=== PATIENT | female | born 1955 ===

== ENCOUNTER 2016-11-17 08:33 | Emergency (ER) | payer MEDICARE, MEDICAID ==
[2016-11-17 08:33] VITALS: BMI 24.0
[2016-11-17 08:41] VITALS: TEMP 97.6
--- NOTE | 2016-11-17 08:50 | C.PDOC ---
History Of Present Illness 61 y/o female presents to the ED complaining persistent right leg pain x 1 week and acute exacerbation of chronic back pain x 1 week. Patient states she accidentally tripped and landed on both knees, now with new onset anterior right thigh pain. She reports, "making my back pain act up." Patient denies any relief with Neurontin or Tylenol. Note that the patient has an extensive psych and substance abuse history. Denies weakness, numbness, or other complaints. CO PERSIST R LEG PAIN X 1 WEEK, ACUTE EXAC CHRONIC BACK PAIN X 1 WEEK. PS ACCID TRIPPED, LANDED ON B/L KNEES NOW W NEW ONSET ANT R THIGH PAIN. "MAKING MY BACK PAIN ACT UP". NO RELIEF W NEURONTIN, TYLENOL. extensive psych and substance abuse history EXAM MILD DIST NONTOXIC BACK AROM +SPASM R LOWER BACK NEURO INTACT EXT AROM WO DIFF; NONTEND; ATRAUM SKIN INTACT GAIT WNL MDM PT ADVISED OF CHRONIC PAIN DEPT POLICY. PT REQUESTING XRAY "TO SEE IF A LIGAMENT TORE", ADVISED WOULD NEED OUTPT MRI FOR EVAL OF THAT CONCERN. - HPI Time Seen by Provider: 11/17/16 08:45 Chief Complaint (Nursing): Lower Extremity Problem/Injury History Per: Patient History/Exam Limitations: no limitations Onset/Duration Of Symptoms: Days (7), Sudden Onset, Persistent Recent travel outside of the [place]: No Past Medical History Reviewed: Historical Data, Nursing Documentation, Vital Signs Vital Signs: Last Vital Signs Temp 97.6 F 11/17/16 10:22 Pulse 60 11/17/16 10:22 Resp 18 11/17/16 10:22 BP 107/69 11/17/16 10:22 Pulse Ox 99 11/17/16 10:22 - Medical History PMH: Anxiety, Atrial Fibrillation, Back Problems, Bipolar Disorder, Dementia, Depression, Diabetes, Diverticulitis, Gastrointestinal Ulcer, HTN, Malignancy, Obstructive Bowel, Pneumonia, Pulmonary Embolism, Seizures, Chronic Pain (on Methadone) Surgical History: No Surg Hx - [facility] Procedures INCISIONAL HERNIA REPAIR (06/13/13) INDIVID PSYCHOTHERAP NEC (12/29/14) INJECT/INFUSE NEC (01/28/15) INSERT GASTRIC TUBE NEC (06/07/13) OTHER GROUP THERAPY (12/29/14) OTHER SKIN & SUBQ I D (11/11/13) PSYCHIAT DRUG THERAP NEC (03/07/15) VACCINATION NEC (02/22/15) Family History: States: Unknown Family Hx - Social History Hx Tobacco Use: No Hx Alcohol Use: No Hx Substance Use: No - Immunization History Hx Tetanus Toxoid Vaccination: No Hx Influenza Vaccination: Yes Hx Pneumococcal Vaccination: No Review Of Systems Except As Marked, All Systems Reviewed And Found Negative. Musculoskeletal: Positive for: Back Pain, Leg Pain (right) Neurological: Negative for: Weakness, Numbness Physical Exam - Physical Exam Appears: Non-toxic, Other (in mild distress) Skin: Normal Color, Warm, Dry Head: Atraumatic, Normacephalic Eye(s): bilateral: Normal Inspection, PERRL, EOMI Neck: Normal ROM Chest: Symmetrical Cardiovascular: Rhythm Regular Respiratory: Normal Breath Sounds, No Rales, No Rhonchi, No Wheezing Gastrointestinal/Abdominal: Normal Exam, Soft, No Tenderness Back: No Vertebral Tenderness, Other (AROM +SPASM R LOWER BACK) Extremity: Normal ROM, No Tenderness Extremity: Bilateral: Atraumatic Pulses: Left Dorsalis Pedis: Normal, Right Dorsalis Pedis: Normal Neurological/Psych: Oriented x3, Normal Speech, Normal Cognition, Normal Motor, Normal Sensation, Normal Reflexes Gait: Other (within normal limits) ED Course And Treatment O2 Sat by Pulse Oximetry: 96 (ra) Pulse Ox Interpretation: Normal - Other Rad X-Ray, Right Hip X-Ray: Interpreted by Me Interpretation: negative X-Ray, Right Femur X-Ray: Interpreted by Me Interpretation: negative Progress - Re-Evaluation Re-evaluation Note: 11/17/16 08:50 [facility] 09/13/2016 OXYCODONE-ACETAMINOPHEN 10-325 90.0 30 08/20/2016 OXYCODONE-ACETAMINOPHEN 10-325 90.0 30 - Data Reviewed Data Reviewed: Old records - Continuity of Care Discussed patient case with:: Patient Medical Decision Making Medical Decision Making: Patient advised of chronic pain dept policy. Patient requesting x-ray "to see if a ligament tore." Advised would need outpatient MRI for evaluation of that concern. Plan: * Valium PO, Lidoderm * X-Ray, Right Hip * X-Ray, Right Femur On reassessment, patient reports improvement of back and leg pain. Patient is resting comfortably, no fever, no bony tenderness, no numbness, no weakness, no abdominal pain. Patient is ambulatory in the Emergency Department with no discomfort. Patient was instructed to follow up with physician/clinic in 1-2 days for further evaluation or return to ED if symptoms persist or worsen. Disposition Counseled Patient/Family Regarding: Studies Performed, Diagnosis, Need For Followup - Disposition Referrals: Sunny Triplett MD [Staff Provider] - Disposition: HOME/ ROUTINE Disposition Time: 10:11 Condition: GOOD Prescriptions: Cyclobenzaprine [Flexeril] 10 mg PO TID #15 tab Lidocaine 5% [Lidoderm] 1 ea TD PRN PRN #10 patch PRN Reason: Pain, Moderate (4-7) Instructions: Muscle Strain (ED), Chronic Back Pain (ED) - Clinical Impression Clinical Impression: Muscle strain of thigh, Acute exacerbation of chronic low back pain - Scribe Statement The provider has reviewed the documentation as recorded by the Scribe (Mary Avila) Provider Attestation: All medical record entries made by the Scribe were at my direction and personally dictated by me. I have reviewed the chart and agree that the record accurately reflects my personal performance of the history, physical exam, medical decision making, and the department course for this patient. I have also personally directed, reviewed, and agree with the discharge instructions and disposition.
[2016-11-17] MEDS ORDERED: Lidocaine 5% Patch TD STA (09:32)
[2016-11-17] MEDS ORDERED: Lidocaine 5% Patch TD ONE (09:42)
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
[2016-11-17 10:25] VITALS: BP 107/69; PULSE 60; RESP 18
[2016-11-17 11:54] VITALS: O2SAT 96
== END 2016-11-17 10:25 | disposition home or self-care (01) ==
LOC: C.ER 08:33
DX: S76.911A Strain of unspecified muscles, fascia and tendons at thigh level, right thigh, initial encounter (principal); W01.0XXA Fall on same level from slipping, tripping and stumbling without subsequent striking against object, initial encounter; Y93.9 Activity, unspecified; Y92.9 Unspecified place or not applicable; G89.29 Other chronic pain; M54.5 Low back pain

== ENCOUNTER 2016-12-01 11:03 | Emergency (ER) | payer MEDICARE, MEDICAID ==
[2016-12-01 11:03] VITALS: BMI 24.0
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
[2016-12-01] MEDS ORDERED: Sodium Chloride 0.9% 500 ML IV STA (12:09)
[2016-12-01 12:32] LABS: BASO # 0.1 K/uL (0.0-0.2); BASO % 1.2 % (0.0-2.0); EOS % 0.5 % (0.0-4.0); HEMATOCRIT 37.2 % (34.0-47.0); LYMPH # 4.2 K/uL (1.0-4.3); LYMPH % 48.9 % (20.0-40.0); MEAN CELL VOLUME 74.2 fL (81.0-99.0); MEAN CORPUSCULAR HEMOGLOBIN 23.7 pg (27.0-31.0); MEAN PLATELET VOLUME 9.1 fL (7.2-11.7); MONO # 0.5 K/uL (0.0-0.8); MONO % 5.8 % (0.0-10.0); NRBC % 0.3 % (0.0-2.0); RED CELL DISTRIBUTION WIDTH 15.6 % (11.5-14.5); WHITE BLOOD COUNT 8.7 K/uL (4.8-10.8)
[2016-12-01 12:44] LABS: CHLORIDE 99 mmol/L (98-107); SODIUM 139 mmol/L (132-148)
[2016-12-01 12:45] LABS: POTASSIUM 4.2 mmol/L (3.6-5.2)
[2016-12-01 12:47] LABS: ALB/GLOB RATIO 1.2 (1.0-2.1); ALKALINE PHOSPHATASE 77 U/L (38-126); ALT/SGPT 15 U/L (9-52); AST/SGOT 25 U/L (14-36); BILIRUBIN,TOTAL 0.6 mg/dL (0.2-1.3); BLOOD UREA NITROGEN 12 mg/dL (7-17); CARBON DIOXIDE 31 mmol/L (22-30); GFR AFRICAN-AMERICAN > 60; GLUCOSE,RANDOM 77 mg/dL (65-105); TOTAL PROTEIN 7.7 g/dL (6.3-8.3)
[2016-12-01 12:48] LABS: CALCIUM 9.3 mg/dl (8.6-10.4)
[2016-12-01 13:00] LABS: PARTIAL THROMBOPLASTIN TIME 27 SECONDS (21-34)
[2016-12-01 13:01] LABS: RBC URINE 3 /hpf (0-3); URINE BILIRUBIN NEGATIVE (NEGATIVE); URINE BLOOD 1+ (NEGATIVE); URINE COLOR Straw (YELLOW); URINE GLUCOSE (UA) NORMAL (Normal); URINE KETONE NEGATIVE (NEGATIVE); URINE LEUKOCYTE ESTERASE NEG Leu/uL (Negative); URINE PROTEIN NEGATIVE (NEGATIVE); URINE UROBILINOGEN NORMAL mg/dL (0.2-1.0)
--- NOTE | 2016-12-01 13:11 | RAD ---
HISTORY: left chest pain COMPARISON: Chest x-ray performed 09/26/16 TECHNIQUE: Chest, one view. FINDINGS: Examination limited by habitus. LUNGS: Lower lobe infiltrate. Please note that chest x-ray has limited sensitivity for the detection of pulmonary masses. PLEURA: No significant pleural effusion identified. No definite pneumothorax . CARDIOVASCULAR: The cardiomediastinal silhouette appears within normal limits of size. OSSEOUS STRUCTURES: No acute osseous abnormality identified. VISUALIZED UPPER ABDOMEN: Unremarkable. OTHER FINDINGS: None. IMPRESSION: Left lower lobe infiltrate.
[2016-12-01] MEDS ORDERED: Sodium Chloride 0.9% 1,000 ML ONE (13:36)
[2016-12-01] MEDS ORDERED: Morphine 4 MG/ML VIAL ONE (13:36)
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
[2016-12-01 17:15] VITALS: BP 90/55; PULSE 60; RESP 12; TEMP 98.1; O2SAT 97
[2016-12-01] MEDS ORDERED: Lidocaine 5% Patch TD PRN (17:56)
[2016-12-01] MEDS ORDERED: Albuterol-Ipratrop 3 mg / 0.5 (3 ml) UD INH PRN (17:56)
[2016-12-01] MEDS ORDERED: TRAZODONE HCL 150 MG PO SCH (22:00)
[2016-12-02] MEDS ORDERED: M PROGEST ACET PO SCH (10:00)
[2016-12-02] MEDS ORDERED: METOPROLOL SUCCINATE 50 MG PO SCH (10:00)
[2016-12-02] MEDS ORDERED: ESTROGEN CON PO SCH (10:00)
[2016-12-02] MEDS ORDERED: Home Med 1 UNIT (Esomeprazole Magnesium [Nexium] 40 MG) PO SCH (10:00)
[2016-12-02] MEDS ORDERED: Venlafaxine 150 mg ER Cap PO SCH (10:00)
[2016-12-02] MEDS ORDERED: Levothyroxine 75 MCG TAB PO SCH (10:00)
--- NOTE | 2016-12-03 12:00 | CARD ---
APPROVED REPORT EKG Measurement Heart [id number] [id number] <Conclusion> Normal sinus rhythm Normal ECG
== END 2016-12-01 18:25 | disposition left against medical advice (07) ==
LOC: C.ER 11:03 → UNDOADMOB 13:57 → C.9E 13:57 → C.6T 17:49 → C.9E 17:49 → C.ER 18:25 → C.9E 18:32 → C.6T 18:32 → C.9E 18:37
DX: R07.89 Other chest pain (principal); R20.0 Anesthesia of skin
CPT/HCPCS: 70450; 71010; 80053; 81001; 82550; 82553; 84484; 85025; 85378; 85610; 85730; 96374; 99285; J2270; J7040

== ENCOUNTER 2016-12-19 11:06 | Emergency (ER) | payer MEDICARE, MEDICAID ==
[2016-12-19 11:07] VITALS: BMI 24.0
[2016-12-19 11:13] VITALS: RESP 18; O2SAT 97
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
[2016-12-19] MEDS ORDERED: Naproxen 550 mg Tab PO STA (13:42)
[2016-12-19] MEDS ORDERED: Naproxen 550 mg Tab PO ONE (13:45)
[2016-12-19 14:34] VITALS: BP 128/87; PULSE 55; TEMP 97.5
--- NOTE | 2016-12-22 11:04 | CARD ---
APPROVED REPORT EKG Measurement Heart [id number] ND 160P57 [id number] <Conclusion> Normal sinus rhythm Normal ECG
== END 2016-12-19 13:45 | disposition home or self-care (01) ==
LOC: C.ER 11:06
DX: S06.0X9A Concussion with loss of consciousness of unspecified duration, initial encounter (principal); S20.212A Contusion of left front wall of thorax, initial encounter; Y04.8XXA Assault by other bodily force, initial encounter; Y92.009 Unspecified place in unspecified non-institutional (private) residence as the place of occurrence of the external cause

== ENCOUNTER 2016-12-31 06:45 | Emergency (ER) | payer MEDICARE, MEDICAID ==
[2016-12-31 06:46] VITALS: BMI 24.0
[2016-12-31 07:00] VITALS: BP 126/88; PULSE 77; RESP 20; TEMP 98.1; O2SAT 99
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
--- NOTE | 2016-12-31 09:41 | RAD ---
HISTORY: Shortness of breath COMPARISON: 12/19/2016 TECHNIQUE: Chest PA and lateral FINDINGS: LUNGS: Biapical pleural thickening with upper lobe granulomatous changes. Diffuse increased interstitial lung markings which may represent chronic changes; however, acute on chronic interstitial edema and or infiltrate can't be excluded. Mild patchy bibasilar airspace opacities. Bibasilar breast and nipple shadows. PLEURA: No significant pleural effusion identified. No pneumothorax apparent. CARDIOVASCULAR: Normal. OSSEOUS STRUCTURES: No significant abnormalities. VISUALIZED UPPER ABDOMEN: Surgical clips in the upper abdomen. OTHER FINDINGS: None. IMPRESSION: Biapical pleural thickening with upper lobe granulomatous changes. Diffuse increased interstitial lung markings which may represent chronic changes; however, acute on chronic interstitial edema and or infiltrate can't be excluded. Mild patchy bibasilar airspace opacities. Bibasilar breast and nipple shadows.
== END 2016-12-31 08:20 | disposition home or self-care (01) ==
LOC: C.ER 06:45
DX: S43.402D Unspecified sprain of left shoulder joint, subsequent encounter (principal); S46.912D Strain of unspecified muscle, fascia and tendon at shoulder and upper arm level, left arm, subsequent encounter; Y04.2XXD Assault by strike against or bumped into by another person, subsequent encounter

== ENCOUNTER 2017-01-04 20:48 | Inpatient (IN) | payer MEDICARE, MEDICAID ==
[2017-01-04 20:48] VITALS: BMI 24.0
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
[2017-01-04] MEDS ORDERED: Aspirin 325 mg EC Tablets PO STA (21:38)
[2017-01-04] MEDS ORDERED: Albuterol-Ipratrop 3 mg / 0.5 (3 ml) UD IH SCH (21:45)
[2017-01-04] MEDS ORDERED: Albuterol-Ipratrop 3 mg / 0.5 (3 ml) UD ONE ×2 (21:50→22:09)
[2017-01-04] MEDS: Albuterol-Ipratrop 3 mg / 0.5 (3 ml) UD IH SCH (22:03)
[2017-01-04 22:05] LABS: BASO # 0.1 K/uL (0.0-0.2); BASO % 1.1 % (0.0-2.0); EOS # 0.1 K/uL (0.0-0.7); EOS % 0.8 % (0.0-4.0); HEMATOCRIT 35.9 % (34.0-47.0); LYMPH # 5.9 K/uL (1.0-4.3); LYMPH % 55.1 % (20.0-40.0); MEAN CELL VOLUME 73.2 fL (81.0-99.0); MEAN CORPUSCULAR HEMOGLOBIN 23.4 pg (27.0-31.0); MONO # 1.1 K/uL (0.0-0.8); MONO % 10.2 % (0.0-10.0); NRBC % 0.4 % (0.0-2.0); RED CELL DISTRIBUTION WIDTH 16.6 % (11.5-14.5); WHITE BLOOD COUNT 10.7 K/uL (4.8-10.8)
[2017-01-04 22:10] LABS: CHLORIDE 98 mmol/L (98-107)
[2017-01-04 22:11] LABS: POTASSIUM 4.4 mmol/L (3.6-5.2); SODIUM 136 mmol/L (132-148)
[2017-01-04 22:13] LABS: BILIRUBIN,TOTAL 0.5 mg/dL (0.2-1.3); GFR AFRICAN-AMERICAN > 60
[2017-01-04 22:14] LABS: ALB/GLOB RATIO 1.2 (1.0-2.1); ALKALINE PHOSPHATASE 80 U/L (38-126); ALT/SGPT 17 U/L (9-52); AST/SGOT 25 U/L (14-36); BLOOD UREA NITROGEN 16 mg/dL (7-17); CALCIUM 8.8 mg/dl (8.6-10.4); CARBON DIOXIDE 30 mmol/L (22-30); GLUCOSE,RANDOM 91 mg/dL (65-105); TOTAL PROTEIN 7.4 g/dL (6.3-8.3)
[2017-01-04 22:17] LABS: INR 0.9
[2017-01-04 22:46] VITALS: RESP 20
[2017-01-04 23:23] LABS: RBC URINE 9 /hpf (0-3); URINE BACTERIA RARE (<OCC); URINE BILIRUBIN NEGATIVE (NEGATIVE); URINE BLOOD NEGATIVE (NEGATIVE); URINE COLOR Yellow (YELLOW); URINE GLUCOSE (UA) NORMAL (Normal); URINE KETONE NEGATIVE (NEGATIVE); URINE LEUKOCYTE ESTERASE NEG Leu/uL (Negative); URINE PROTEIN NEGATIVE (NEGATIVE); WBC URINE 1 /hpf (0-5)
[2017-01-05] MEDS: Albuterol-Ipratrop 3 mg / 0.5 (3 ml) UD IH SCH ×3 (03:08→11:18)
[2017-01-05 08:18] VITALS: BP 113/70; PULSE 84; TEMP 98; O2SAT 98
--- NOTE | 2017-01-05 08:42 | CP.PCM.PN ---
Subjective - Date & Time of Evaluation Date of Evaluation: 01/05/17 Time of Evaluation: 09:00 - Subjective Subjective: Patient seen and examined in room. She says she has alot of pain around the left side of her rib cage that is worsened with deep inspiration. She currently denies fever, chills, nausea, vomiting, coughing, chest pain, or diffaculty breathing. Objective - Vital Signs/Intake and Output Vital Signs (last 24 hours): Temp Pulse Resp BP Pulse Ox 98.0 F 84 20 113/70 98 01/05/17 08:16 01/05/17 08:16 01/05/17 08:16 01/05/17 08:16 01/05/17 08:16 - Medications Medications: Current Medications Albuterol/Ipratropium (Duoneb 3 Mg/0.5 Mg (3 Ml) Ud) 3 ml IH RQ4 CIRO Last Admin: 01/05/17 07:38 Dose: 3 ml Clonazepam (Klonopin) 0.5 mg PO BID PRN PRN Reason: Anxiety Last Admin: 01/05/17 00:13 Dose: 0.5 mg Heparin Sodium (Porcine) (Heparin) 5,000 units SC Q12H CIRO Methylprednisolone (Solu-Medrol) 40 mg IVP Q12 CIRO Nicotine (Nicoderm Cq) 1 patch TD DAILY CIRO - Labs Labs: 01/04/17 21:59 01/04/17 21:59 PT 10.3 SECONDS (9.7-12.2) 01/04/17 21:59 INR 0.9 01/04/17 21:59 APTT 30 SECONDS (21-34) 01/04/17 21:59 - Constitutional Appears: Non-toxic, No Acute Distress - Head Exam Head Exam: NORMAL INSPECTION - Eye Exam Eye Exam: Normal appearance Pupil Exam: NORMAL ACCOMODATION - ENT Exam ENT Exam: Normal Exam - Neck Exam Neck Exam: Normal Inspection - Respiratory Exam Respiratory Exam: Clear to Ausculation Bilateral. absent: Rales, Rhonchi, Wheezes - Cardiovascular Exam Cardiovascular Exam: REGULAR RHYTHM, RRR, +S1, +S2 - GI/Abdominal Exam GI & Abdominal Exam: Soft, Normal Bowel Sounds. absent: Tenderness - Extremities Exam Extremities Exam: Normal Inspection - Back Exam Back Exam: NORMAL INSPECTION - Neurological Exam Neurological Exam: Alert - Psychiatric Exam Psychiatric exam: Normal Affect, Normal Mood - Skin Skin Exam: Normal Color, Warm Assessment and Plan - Assessment and Plan (Free Text) Assessment: Patient was discharged with home today per Dr. Triplett
--- NOTE | 2017-01-05 09:12 | RAD ---
PROCEDURE: CHEST RADIOGRAPH, 1 VIEW HISTORY: SOB COMPARISON: 12/31/2016 FINDINGS: LUNGS: Clear. PLEURA: No pneumothorax or pleural fluid seen. CARDIOVASCULAR: Normal. OSSEOUS STRUCTURES: No significant abnormalities. VISUALIZED UPPER ABDOMEN: Normal. OTHER FINDINGS: None. IMPRESSION: No active disease.
[2017-01-05] MEDS ORDERED: MethylPREDNISolone 40 mg Vial IVP SCH (10:00)
--- NOTE | 2017-01-05 12:52 | CARD ---
APPROVED REPORT EKG Measurement Heart [id number] ND [id number] [id number] <Conclusion> Normal sinus rhythm Normal ECG
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
== END 2017-01-05 13:50 | disposition home or self-care (01) | DRG 206 ==
LOC: C.ER 20:48 → C.9E 21:39 → C.3T 23:44
PROVIDERS: ADMIT Internal Medicine Pulmonary Disease; ATTEND Internal Medicine Pulmonary Disease
DX: M94.0 Chondrocostal junction syndrome [Tietze] (principal); F03.90 Unspecified dementia, unspecified severity, without behavioral disturbance, psychotic disturbance, mood disturbance, and anxiety; I48.91 Unspecified atrial fibrillation; F31.9 Bipolar disorder, unspecified; F41.9 Anxiety disorder, unspecified; E11.9 Type 2 diabetes mellitus without complications; I10 Essential (primary) hypertension; Z86.711 Personal history of pulmonary embolism; S20.219A Contusion of unspecified front wall of thorax, initial encounter; Y09 Assault by unspecified means; J44.9 Chronic obstructive pulmonary disease, unspecified; Z87.891 Personal history of nicotine dependence; Z98.84 Bariatric surgery status

== ENCOUNTER 2017-03-30 12:41 | Emergency (ER) | payer MEDICARE, MEDICAID ==
[2017-03-30 12:41] VITALS: BMI 24.0
[2017-03-30] MEDS ORDERED: Naproxen 550 mg Tab PO STA (13:03)
[2017-03-30] MEDS ORDERED: Naproxen 550 mg Tab PO ONE (13:08)
--- NOTE | 2017-03-30 13:28 | RAD ---
PROCEDURE: Radiographs of the Left Shoulder HISTORY: trauma COMPARISON: Comparison made with prior chest radiograph dated 01/04/2017 which also imaged the left shoulder. FINDINGS: BONES: Displaced JOINTS: Glenohumeral and acromioclavicular joints preserved. No significant osteoarthritis. SOFT TISSUES: Normal. OTHER FINDINGS: None. IMPRESSION: No acute fractures.
--- NOTE | 2017-03-30 13:49 | RAD ---
PROCEDURE: Left small finger radiographs. HISTORY: trauma COMPARISON: None available. TECHNIQUE: AP radiograph of the left hand, as well as spot oblique and lateral images of left small finger were obtained. FINDINGS: LEFT SMALL FINGER: Unremarkable left 5th digit without acute displaced fracture identified. Remainder of the left hand (as seen on the AP view) is grossly unremarkable. JOINTS: No dislocation. SOFT TISSUES: No evidence of radiopaque foreign body. OTHER FINDINGS: None. IMPRESSION: No acute displaced fracture identified.
[2017-03-30 14:01] VITALS: BP 136/78; PULSE 60; RESP 20; TEMP 98; O2SAT 98
--- NOTE | 2017-03-30 14:14 | RAD ---
PROCEDURE: Radiographs of the left elbow. HISTORY: trauma COMPARISON: None available. FINDINGS: BONES: No acute displaced fracture. JOINTS: No dislocation. SOFT TISSUES: 1.2 x 0.1 cm thin linear metallic foreign body is noted within the soft tissues at the level of the mid to distal humerus. Additional thin linear metallic density is noted at the level of the distal forearm, incompletely imaged. JOINT EFFUSION: No significant joint effusion. OTHER FINDINGS: None IMPRESSION: 1.2 x 0.1 cm thin linear metallic foreign body is noted within the soft tissues at the level of the mid to distal humerus. Additional thin linear metallic density is noted at the level of the distal forearm, incompletely imaged.
[2017-03-30] MEDS ORDERED: Oxycodone/Acetaminophen 5/325 mg Tab ONE (14:16)
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
[2017-03-30] MEDS ORDERED: Oxycodone/Acetaminophen 5/325 mg Tab PO STA (14:34)
== END 2017-03-30 14:36 | disposition home or self-care (01) ==
LOC: C.ER 12:41
DX: S40.012A Contusion of left shoulder, initial encounter (principal); S50.02XA Contusion of left elbow, initial encounter; S60.052A Contusion of left little finger without damage to nail, initial encounter; W01.0XXA Fall on same level from slipping, tripping and stumbling without subsequent striking against object, initial encounter

== ENCOUNTER 2017-04-09 11:53 | Observation (INO) | payer MEDICARE, MEDICAID ==
[2017-04-09 11:54] VITALS: BMI 24.0
[2017-04-09 12:11] VITALS: RESP 20
[2017-04-09 12:56] LABS: BASO # 0.1 K/uL (0.0-0.2); BASO % 0.3 % (0.0-2.0); EOS # 0.1 K/uL (0.0-0.7); EOS % 0.3 % (0.0-4.0); HEMATOCRIT 38.1 % (34.0-47.0); LYMPH # 7.6 K/uL (1.0-4.3); LYMPH % 40.8 % (20.0-40.0); MEAN CELL VOLUME 74.2 fL (81.0-99.0); MEAN CORPUSCULAR HEMOGLOBIN 23.4 pg (27.0-31.0); MEAN CORPUSCULAR HGB CONC 31.5 g/dL (33.0-37.0); MEAN PLATELET VOLUME 9.8 fL (7.2-11.7); MONO % 5.5 % (0.0-10.0); NRBC % 0.2 % (0.0-2.0); RED CELL DISTRIBUTION WIDTH 17.2 % (11.5-14.5)
[2017-04-09 12:57] LABS: WHITE BLOOD COUNT 18.7 K/uL (4.8-10.8)
[2017-04-09 13:01] LABS: CHLORIDE 101 mmol/L (98-107)
[2017-04-09 13:02] LABS: SODIUM 137 mmol/L (132-148)
[2017-04-09 13:03] LABS: POTASSIUM 3.8 mmol/L (3.6-5.2)
[2017-04-09 13:04] LABS: ALB/GLOB RATIO 1.3 (1.0-2.1); AST/SGOT 34 U/L (14-36); BILIRUBIN,TOTAL 0.8 mg/dL (0.2-1.3); BLOOD UREA NITROGEN 14 mg/dL (7-17); CARBON DIOXIDE 22 mmol/L (22-30); GFR AFRICAN-AMERICAN > 60; TOTAL PROTEIN 7.2 g/dL (6.3-8.3)
[2017-04-09 13:05] LABS: ALKALINE PHOSPHATASE 80 U/L (38-126); ALT/SGPT 26 U/L (9-52); CALCIUM 8.7 mg/dl (8.6-10.4); GLUCOSE,RANDOM 185 mg/dL (65-105)
--- NOTE | 2017-04-09 13:42 | C.PDOC ---
History Of Present Illness Patient BIBA for evaluation of allergic reaction that started after she ate a potato and meat empanada. As per EMS, patient was c/o swollen tongue, itchy throat, hives and had stridor. Patient given IV solumedrol, epi SC x2, IV benadryl, duoneb treatments in the field. Arrives to ED appearing comfortable. Time Seen by Provider: 04/09/17 12:24 Chief Complaint (Nursing): Allergic Reaction History Per: Patient, EMS History/Exam Limitations: no limitations Onset/Duration Of Symptoms: Mins Possible Cause: Other (potato + meat empanada) Associated Symptoms: Skin Rash, Swelling (tongue), Dyspnea, Itching, Redness Home/EMS Treatment: Benadryl, Epi-pen, Steroids Severity: Moderate Past Medical History Reviewed: Historical Data, Nursing Documentation, Vital Signs Vital Signs: Last Vital Signs Temp 98.0 F 04/09/17 15:49 Pulse 96 H 04/09/17 15:49 Resp 20 04/09/17 15:49 BP 139/74 04/09/17 15:49 Pulse Ox 99 04/09/17 15:49 - Medical History PMH: Anxiety, Arthritis (BACK), Atrial Fibrillation, Back Problems, Bipolar Disorder, COPD, Dementia, Depression, Diabetes, Diverticulitis, Gastrointestinal Ulcer, HTN, Malignancy, Obstructive Bowel, Pneumonia, Pulmonary Embolism, Seizures, Chronic Pain (on Methadone) Surgical History: Appendectomy, CABG, Tonsillectomy - [facility] Procedures INCISIONAL HERNIA REPAIR (06/13/13) INDIVID PSYCHOTHERAP NEC (12/29/14) INJECT/INFUSE NEC (01/28/15) INSERT GASTRIC TUBE NEC (06/07/13) OTHER GROUP THERAPY (12/29/14) OTHER SKIN & SUBQ I D (06/13/13) PSYCHIAT DRUG THERAP NEC (03/07/15) VACCINATION NEC (02/22/15) Family History: States: No Known Family Hx - Social History Hx Tobacco Use: No Hx Alcohol Use: No Hx Substance Use: No - Immunization History Hx Tetanus Toxoid Vaccination: No Hx Influenza Vaccination: No Hx Pneumococcal Vaccination: No Review Of Systems Except As Marked, All Systems Reviewed And Found Negative. Constitutional: Negative for: Fever, Chills ENT: Positive for: Throat Swelling, Other (tongue swelling ) Cardiovascular: Negative for: Chest Pain, Palpitations Respiratory: Positive for: Shortness of Breath Gastrointestinal: Negative for: Nausea, Vomiting, Abdominal Pain, Diarrhea Genitourinary: Negative for: Dysuria Physical Exam - Physical Exam Appears: Well, Non-toxic, No Acute Distress, Other (speaking in full sentences ) Skin: Normal Color, Warm, Dry, No Rash Head: Normacephalic Eye(s): bilateral: Normal Inspection Oral Mucosa: Moist Tongue: Normal Appearing, No Swelling Lips: Normal Appearing, No Swelling Throat: Normal, No Erythema, No Exudate, No Drooling Cardiovascular: Rhythm Regular Respiratory: Normal Breath Sounds, No Rales, No Rhonchi, No Wheezing Gastrointestinal/Abdominal: Normal Exam, Bowel Sounds, Soft, No Tenderness Extremity: Normal ROM Extremity: Bilateral: Atraumatic, Normal Color And Temperature, Normal ROM Neurological/Psych: Oriented x3 ED Course And Treatment - Laboratory Results Result Diagrams: 04/09/17 12:48 04/09/17 12:48 O2 Sat by Pulse Oximetry: 100 (RA) Pulse Ox Interpretation: Normal Progress Note: Blood work ordered and reviewed. Patient observed in ED for three hours. Reevaluation Time: 15:20 Reassessment Condition: Improved (Patient reassessed, is currently resting comfortably, in no distress. On exam, patient is speaking in full sentences, and has no wheezing/stridor/drooling. Pox is 99% on RA. Rxs for prednisone, benadryl and epipen given, and patient instructed to follow up with PMD/clinic in 1-2 days. She understands she should return to ED if symptoms worsen.) Disposition Counseled Patient/Family Regarding: Studies Performed, Diagnosis, Need For Followup, Rx Given - Disposition Disposition: HOME/ ROUTINE Disposition Time: 15:20 Condition: STABLE - Clinical Impression Clinical Impression: Allergic reaction
[2017-04-09 15:50] VITALS: BP 139/74; PULSE 96; TEMP 98
[2017-04-13 17:35] VITALS: O2SAT 100
== END 2017-04-09 15:18 | disposition home or self-care (01) ==
LOC: C.ER 11:53 → C.9OBSV 13:00
PROVIDERS: ADMIT Emergency Medicine; ATTEND Emergency Medicine
DX: L29.8 Other pruritus (principal); I10 Essential (primary) hypertension; I48.91 Unspecified atrial fibrillation; J44.9 Chronic obstructive pulmonary disease, unspecified
CPT/HCPCS: 80053; 85025; G0378

== ENCOUNTER 2017-10-06 11:21 | Emergency (ER) | payer MEDICARE, MEDICAID ==
[2017-10-06 11:21] VITALS: BMI 31.1
[2017-10-06 11:50] VITALS: RESP 18; O2SAT 98
--- NOTE | 2017-10-06 12:34 | C.PDOC ---
History Of Present Illness 62-year-old female, presents to the emergency department with complaints of left shoulder pain s/p mechanical fall of the bed three days ago. Patient has a Hx of surgery to L arm last year- Dr Gaytan. Denies head injuries or change in sensation. Patient notes she went to see her PMD, who prescribed Percocet, which is providing minimal relief, resulting in her coming to ED for evaluation. Time Seen by Provider: 10/06/17 11:51 Chief Complaint (Nursing): Upper Extremity Problem/Injury History Per: Patient History/Exam Limitations: no limitations Onset/Duration Of Symptoms: Days Current Symptoms Are (Timing): Still Present Past Medical History Reviewed: Historical Data, Vital Signs Vital Signs: Last Vital Signs Temp 98.1 F 10/06/17 13:44 Pulse 56 L 10/06/17 13:44 Resp 18 10/06/17 13:44 BP 135/90 10/06/17 13:44 Pulse Ox 98 10/06/17 13:50 - Medical History PMH: Anemia (on iron infusion weekly last taken 06/01/17), Anxiety, Arthritis ( BACK), Atrial Fibrillation, Back Problems, Bipolar Disorder, Cardia Arrhythmia, COPD, Dementia, Depression, Diabetes, Diverticulitis, Gastrointestinal Ulcer, HTN, Malignancy, Obstructive Bowel, Pneumonia, Seizures, Chronic Pain (on Methadone) Denies: Fractures, HIV, Hyperthyroidism, Hypothyroidism, Osteoporosis, Chronic Kidney Disease, Rheumatoid Arthritis, Sickle Cell Disease, Sexually Transmitted Disease Comment Only: Pulmonary Embolism (not sure) Surgical History: Appendectomy, Tonsillectomy Denies: Carotid Endarterectomy, Cholecystectomy, Coronary Stent - [facility] Procedures INCISIONAL HERNIA REPAIR (06/13/13) INDIVID PSYCHOTHERAP NEC (12/29/14) INJECT/INFUSE NEC (01/28/15) INSERT GASTRIC TUBE NEC (06/07/13) OTHER GROUP THERAPY (12/29/14) OTHER SKIN & SUBQ I D (06/13/13) PSYCHIAT DRUG THERAP NEC (03/07/15) VACCINATION NEC (02/22/15) Family History: States: No Known Family Hx - Social History Hx Tobacco Use: No Hx Alcohol Use: No Hx Substance Use: No - Immunization History Hx Tetanus Toxoid Vaccination: No Hx Influenza Vaccination: No Hx Pneumococcal Vaccination: No Review Of Systems Constitutional: Negative for: Fever Respiratory: Negative for: Shortness of Breath Gastrointestinal: Negative for: Vomiting Musculoskeletal: Positive for: Shoulder Pain Neurological: Negative for: Weakness, Numbness Physical Exam - Physical Exam Appears: Non-toxic, No Acute Distress Skin: Normal Color, Warm, Dry, No Rash Head: Atraumatic, Normacephalic Eye(s): bilateral: Normal Inspection, EOMI Nose: Normal Oral Mucosa: Moist Neck: Normal, Normal ROM, No Midline Cervical Tenderness, No Step Off Deformity , Supple, Other (left sided trapezius spasm) Chest: Symmetrical Cardiovascular: Rhythm Regular Respiratory: Normal Breath Sounds, No Accessory Muscle Use Extremity: Normal ROM (Pain exacerbated passed 90 degrees), Tenderness (diffuse) , Capillary Refill (<2 seconds), No Deformity, No Swelling, Other (healed incisions.) Pulses: Left Radial: Normal, Right Radial: Normal Neurological/Psych: Oriented x3, Normal Speech, Normal Motor, Normal Sensation ED Course And Treatment O2 Sat by Pulse Oximetry: 98 (RA) Pulse Ox Interpretation: Normal - Other Rad XR L Shoulder X-Ray: Viewed By Me, Read By Radiologist Interpretation: Accession No. : [id number]. Patient Name / ID : TY [id number] / [id number]. Exam Date : 10/06/2017 13:11:41 ( Approved ). Study Comment : Sex / Age : F / [id number]. Creator : Priscilla Steele MD. Dictator : Priscilla Steele MD. Manager Cash : Senior Net Engineer : Priscilla Steele MD. Approver2 : Report Date : 10/06/2017 13:26:29. My Comment : . PROCEDURE: Radiographs of the Left Shoulder. HISTORY: Trauma. COMPARISON: 2016. FINDINGS: BONES: Bone alignment and mineralization are normal. There is no acute displaced fracture or bone destruction. JOINTS: There is mild degenerative osteoarthrosis in the acromioclavicular joint. There are cystic changes in the greater tuberosity of the humerus likely degenerative in etiology. SOFT TISSUES: Normal. OTHER FINDINGS: None. IMPRESSION: No acute fracture or dislocation. Progress Note: XR Left shoulder ordered and reviewed. Patient treated with PO Flexeril. On re-evaluation, pain has improved, Patient is resting comfortably, and is in no acute distress. Arm placed in sling by glass technologist. Patient was instructed to follow up with physician/clinic in 1-2 days for further evaluation. Disposition - Disposition Referrals: Last Gaytan MD [Staff Provider] - Disposition: HOME/ ROUTINE Disposition Time: 13:29 Condition: STABLE Additional Instructions: Please apply ice to area 15 minutes three times a day. Take Motrin as needed for pain every 6 hours, with food to not upset stomach. Follow up with orthopedic if pain persists over one week. Prescriptions: Cyclobenzaprine [Cyclobenzaprine HCl] 10 mg PO BID PRN #14 tab PRN Reason: Muscle Spasm Instructions: Shoulder Sprain Forms: [employer] ([place]wana) - Clinical Impression Clinical Impression: Shoulder contusion - Scribe Statement The provider has reviewed the documentation as recorded by the Scribe (Jimena Gaytan) All medical record entries made by the Scribe were at my direction and personally dictated by me. I have reviewed the chart and agree that the record accurately reflects my personal performance of the history, physical exam, medical decision making, and the department course for this patient. I have also personally directed, reviewed, and agree with the discharge instructions and disposition.
--- NOTE | 2017-10-06 13:27 | RAD ---
PROCEDURE: Radiographs of the Left Shoulder HISTORY: Trauma COMPARISON: 03/30/2017. FINDINGS: BONES: Bone alignment and mineralization are normal. There is no acute displaced fracture or bone destruction. JOINTS: There is mild degenerative osteoarthrosis in the acromioclavicular joint. There are cystic changes in the greater tuberosity of the humerus likely degenerative in etiology. SOFT TISSUES: Normal. OTHER FINDINGS: None. IMPRESSION: No acute fracture or dislocation.
[2017-10-06 13:45] VITALS: BP 135/90; PULSE 56; TEMP 98.1
== END 2017-10-06 13:45 | disposition home or self-care (01) ==
LOC: C.ER 11:21
DX: S40.012A Contusion of left shoulder, initial encounter (principal); W06.XXXA Fall from bed, initial encounter

== ENCOUNTER 2017-12-12 10:29 | Observation (INO) | payer MEDICARE, MEDICAID ==
[2017-12-12 10:29] VITALS: BMI 31.1
--- NOTE | 2017-12-12 10:57 | C.PDOC ---
History Of Present Illness 62-year-old female with PMHX that includes anemia, HTN, CAD, A. fib, DM II, COPD presents to ED for complaints of intermittent left sided chest pain/ pressure that began at 9AM today. Patient reports that the pain sometimes radiates to her left arm and neck. Patient also states that she was given bad news this morning at 6:30AM that one of her family members . She denies cough, fever, SOB, palpitations. PMD - Dr. Delaney Cardiology - Dr. Sincere Diaz Time Seen by Provider: 12/12/17 10:42 Chief Complaint (Nursing): Chest Pain History Per: Patient History/Exam Limitations: no limitations Onset/Duration Of Symptoms: Hrs, Intermittent Episodes Current Symptoms Are (Timing): Still Present Severity: Moderate Quality: Pressure Modifying Factors: None Exacerbating Factors: None Alleviating Factors: None Recent travel outside of the [place]: No Past Medical History Reviewed: Historical Data, Nursing Documentation, Vital Signs Vital Signs: Last Vital Signs Temp 98.1 F 12/13/17 07:30 Pulse 73 12/13/17 09:42 Resp 20 12/13/17 07:30 BP 105/62 12/13/17 08:40 Pulse Ox 95 12/13/17 07:30 - Medical History PMH: Anemia (on iron infusion weekly last taken 06/01/17), Anxiety, Arthritis ( BACK), Atrial Fibrillation, Back Problems, Bipolar Disorder, Cardia Arrhythmia, COPD, Dementia, Depression, Diabetes, Diverticulitis, Gastrointestinal Ulcer, HTN, Malignancy, Obstructive Bowel, Pneumonia, Seizures, Chronic Pain (on Methadone) Comment Only: Pulmonary Embolism (not sure) Surgical History: Appendectomy, Tonsillectomy - [facility] Procedures INCISIONAL HERNIA REPAIR (06/13/13) INDIVID PSYCHOTHERAP NEC (12/29/14) INJECT/INFUSE NEC (01/28/15) INSERT GASTRIC TUBE NEC (06/07/13) OTHER GROUP THERAPY (12/29/14) OTHER SKIN & SUBQ I D (06/13/13) PSYCHIAT DRUG THERAP NEC (03/07/15) VACCINATION NEC (02/22/15) Family History: States: No Known Family Hx - Social History Hx Tobacco Use: No Hx Alcohol Use: No Hx Substance Use: No - Immunization History Hx Tetanus Toxoid Vaccination: No Hx Influenza Vaccination: No Hx Pneumococcal Vaccination: No Review Of Systems Constitutional: Negative for: Fever, Chills Cardiovascular: Positive for: Chest Pain (left sided; radiates to left arm and neck ). Negative for: Palpitations Respiratory: Negative for: Cough, Shortness of Breath Gastrointestinal: Negative for: Nausea, Vomiting, Diarrhea Genitourinary: Negative for: Dysuria, Hematuria Skin: Negative for: Rash Neurological: Negative for: Weakness, Numbness Physical Exam - Physical Exam Appears: Well, Non-toxic, Other (Mildly uncomfortable; anxious appearing ) Skin: Warm, Dry, No Rash Head: Atraumatic, Normacephalic Eye(s): bilateral: Normal Inspection, PERRL, EOMI Oral Mucosa: Moist Neck: Supple Chest: Symmetrical, No Tenderness Cardiovascular: Rhythm Regular Respiratory: Normal Breath Sounds, No Rales, No Rhonchi, No Wheezing Gastrointestinal/Abdominal: Normal Exam, Bowel Sounds, Soft, No Tenderness Extremity: Normal ROM, No Pedal Edema, No Calf Tenderness Extremity: Bilateral: Normal Color And Temperature, Normal ROM Neurological/Psych: Oriented x3, Other (No focal deficits ) Gait: Steady ED Course And Treatment - Laboratory Results Result Diagrams: 12/13/17 04:36 12/13/17 04:36 ECG Interpretation: Normal O2 Sat by Pulse Oximetry: 95 (RA) Pulse Ox Interpretation: Normal - Other Rad CXR X-Ray: Viewed By Me, Read By Radiologist Interpretation: PROCEDURE: CHEST RADIOGRAPH, 1 VIEW. HISTORY: SOB. COMPARISON: Portable chest 01/04/2017. FINDINGS: LUNGS: No acute infiltrate identified bilaterally. PLEURA: No pneumothorax or pleural fluid seen. CARDIOVASCULAR: Normal. OSSEOUS STRUCTURES: No significant abnormalities. VISUALIZED UPPER ABDOMEN: Incidental note is made ventral hernia repair surgical clips as well as separate surgical clips in the right upper quadrant abdomen. OTHER FINDINGS: None. IMPRESSION: No interval acute cardiopulmonary disease appreciated. Progress Note: Blood work, EKG, CXR ordered and reviewed. Patient given PO ASA and IV Morphine. EKG Results: - Normal Sinus Rhythm at 61bpm. - Normal axis. - No acute ST ot T wave changes - Physician Consult Information Physician Contacted: Ruth Michelle Outcome Of Conversation: Discussed patient with hospitalist, they are covering Dr. Delaney while he is away on vacation. She agrees with obs tele for chest pain r/o ACS. Disposition - Disposition Disposition: HOSPITALIZED Disposition Time: 14:58 Condition: STABLE - Clinical Impression Clinical Impression: Chest pain - Scribe Statement The provider has reviewed the documentation as recorded by the Todibe Siva Guerrero All medical record entries made by the Scribe were at my direction and personally dictated by me. I have reviewed the chart and agree that the record accurately reflects my personal performance of the history, physical exam, medical decision making, and the department course for this patient. I have also personally directed, reviewed, and agree with the discharge instructions and disposition. Decision To Admit - Pt Status Changed To: Hospital Disposition Of: Observation - . Bed Request Type: Telemetry Admitting Physician: Ruth Michelle Patient Diagnosis: Chest pain
[2017-12-12 11:59] LABS: BASO # 0.1 K/uL (0.0-0.2); BASO % 0.9 % (0.0-2.0); EOS % 0.6 % (0.0-4.0); HEMOGLOBIN 13.5 g/dL (11.0-16.0); LYMPH # 3.3 K/uL (1.0-4.3); LYMPH % 38.9 % (20.0-40.0); MEAN CELL VOLUME 74.4 fL (81.0-99.0); MEAN CORPUSCULAR HEMOGLOBIN 24.7 pg (27.0-31.0); MEAN CORPUSCULAR HGB CONC 33.2 g/dL (33.0-37.0); MEAN PLATELET VOLUME 9.5 fL (7.2-11.7); MONO # 0.6 K/uL (0.0-0.8); MONO % 7.5 % (0.0-10.0); NEUT # 4.4 K/uL (1.8-7.0); NEUT % 52.1 % (50.0-75.0); NRBC % 0.5 % (0.0-2.0); RBC 5.48 Mil/uL (3.80-5.20); RED CELL DISTRIBUTION WIDTH 16.8 % (11.5-14.5)
[2017-12-12 12:01] LABS: WHITE BLOOD COUNT 8.4 K/uL (4.8-10.8)
--- NOTE | 2017-12-12 12:02 | RAD ---
PROCEDURE: CHEST RADIOGRAPH, 1 VIEW HISTORY: SOB COMPARISON: Portable chest 01/04/2017. FINDINGS: LUNGS: No acute infiltrate identified bilaterally. PLEURA: No pneumothorax or pleural fluid seen. CARDIOVASCULAR: Normal. OSSEOUS STRUCTURES: No significant abnormalities. VISUALIZED UPPER ABDOMEN: Incidental note is made ventral hernia repair surgical clips as well as separate surgical clips in the right upper quadrant abdomen. OTHER FINDINGS: None. IMPRESSION: No interval acute cardiopulmonary disease appreciated.
[2017-12-12 12:07] LABS: PROTHROMBIN TIME 11.3 SECONDS (9.7-12.2)
[2017-12-12 12:09] LABS: ALB/GLOB RATIO 1.1 (1.0-2.1); ALBUMIN 4.7 g/dL (3.5-5.0); CALCIUM 10.8 mg/dl (8.6-10.4); GFR AFRICAN-AMERICAN > 60; GFR NON-AFRICAN AMERICAN > 60
[2017-12-12 12:13] LABS: ALT/SGPT 25 U/L (9-52); AST/SGOT 38 U/L (14-36); BLOOD UREA NITROGEN 14 mg/dL (7-17)
[2017-12-12 12:18] LABS: CK-MB 0.67 ng/mL (0.0-3.38)
[2017-12-12] MEDS ORDERED: Aspirin 325 mg EC Tablets PO STA (14:12)
[2017-12-12] MEDS ORDERED: Morphine 4 MG/ML VIAL ONE (14:39)
[2017-12-12] MEDS ORDERED: Aspirin 325 mg EC Tablets PO ONE (14:39)
--- NOTE | 2017-12-12 15:37 | CP.PCM.HP ---
History of Present Illness - History of Present Illness History of Present Illness: Medicine Note for Hospitalist Service- Dr. Manzo CC: chest pain HPI: This is a 62 year old female with PMHx of HTN, Hypothyroidism, Depression, Anxiety, and Hx of Hep C treated in 2014 (with Dr. Ventura), who presents to the ED with chest pain. Patient reports last night she received a phone call with news that her brother was found in a bath tub from a myocardial infarction. Patient has also lost her mother 8 months ago and her sister a few months ago from a AAA. Last night she felt immense sharp chest pain, radiating up the left side of her neck, and down her left arm. She became diaphoretic, short of breath, dizzy. EMS was called and patient was brought to the ED. Patient reports she has not been able to sleep for the past few months. She considers herself as the strong person in the family, so she endures all the pressures from the family. Denied sick contacts, recent travel. Denied fever, headache, chest pain, SOB, or urinary symptoms. PMHx: HTN, Hypothyroidism, Depression, Anxiety, Hx of Hep C treated in 2014 ( with Dr. Ventura) PSHx: Gastric Bypass Meds: As per OCT All: NKDA SHx: Admitted to tobacco (1-2 cigs / day x ~ 1 year) Denied alcohol or illicit drug use FHx: Strong family history of [place], [place] (sister, brother) PMD: Dr. rTiplett Cardio: Dr. Maire Diaz Present on Admission - Present on Admission Any Indicators Present on Admission: No Past Patient History - Infectious Disease Hx of Infectious Diseases: None - Past Medical History & Family History Past Medical History?: Yes - Past Social History Smoking Status: Current Some Days Smoker - CARDIAC Hx Atrial Fibrillation: Yes Hx Cardia Arrhythmia: Yes Hx Hypertension: Yes - PULMONARY Hx Chronic Obstructive Pulmonary Disease (COPD): Yes Hx Pneumonia: Yes Hx Pulmonary Embolism: (not sure) - NEUROLOGICAL Hx Dementia: Yes Hx Seizures: Yes - HEENT Hx HEENT Problems: Yes (Wears glasses) Hx Cataracts: No Hx Deafness: No Hx Difficulty Chewing: No Hx Epistaxis: No Hx Glaucoma: No Hx Macular Degeneration: No - ENDOCRINE/METABOLIC Hx Hyperthyroidism: No Hx Hypothyroidism: No - HEMATOLOGICAL/ONCOLOGICAL Hx Anemia: Yes (on iron infusion weekly last taken 06/01/17) - INTEGUMENTARY Hx Dermatological Problems: No Hx Basil Cell: No Hx Nieto: No Hx Cellulitis: No Hx Eczema: No Hx Melanoma: No Hx Psoriasis: No Hx Squamous Cell: No - MUSCULOSKELETAL/RHEUMATOLOGICAL Hx Arthritis: Yes (BACK) - GASTROINTESTINAL Hx Diverticulitis: Yes - GENITOURINARY/GYNECOLOGICAL Hx Sexually Transmitted Disorders: No - PSYCHIATRIC Hx Anxiety: Yes Hx Bipolar Disorder: Yes Hx Depression: Yes Hx Substance Use: No - SURGICAL HISTORY Hx Appendectomy: Yes Hx Tonsillectomy: Yes - ANESTHESIA Hx Anesthesia: Yes (hard to fall asleep) Hx Anesthesia Reactions: No Hx Malignant Hyperthermia: No Meds Allergies/Adverse Reactions: Allergies Allergy/AdvReac Type Severity Reaction Status Date / Time iodine Allergy Intermediate ANAPHYLAXIS Verified 12/12/17 10:50 Sulfa (Sulfonamide Allergy Intermediate ANAPHYLAXIS Verified 12/12/17 10:50 Antibiotics) codeine Allergy ANAPHYLAXIS Verified 12/12/17 10:50 seafood Allergy Intermediate ANAPHYLAXIS Uncoded 12/12/17 10:50 yucca Allergy ANAPHYLAXIS Uncoded 12/12/17 10:50 Physical Exam - Constitutional Appears: No Acute Distress - Head Exam Head Exam: NORMAL INSPECTION, NORMOCEPHALIC - Eye Exam Eye Exam: EOMI, Normal appearance, PERRL Pupil Exam: NORMAL ACCOMODATION - ENT Exam ENT Exam: Mucous Membranes Moist, Normal Exam - Respiratory Exam Respiratory Exam: Clear to Auscultation Bilateral, NORMAL BREATHING PATTERN. absent: Decreased Breath Sounds, Wheezes - Cardiovascular Exam Cardiovascular Exam: REGULAR RHYTHM - GI/Abdominal Exam GI & Abdominal Exam: Normal Bowel Sounds, Soft. absent: Distended, Tenderness - Rectal Exam Rectal Exam: Deferred - Extremities Exam Extremities exam: Positive for: normal inspection, pedal pulses present. Negative for: pedal edema, tenderness - Back Exam Back exam: NORMAL INSPECTION - Neurological Exam Neurological exam: Alert, CN II-XII Intact, Oriented x3 Additional comments: 5/5 motor strength in RUE, 4/5 motor strength in BL LE, 4/5 motor strength in Upper and Lower left extremity decreased sensation left upper and lower extremity - Psychiatric Exam Psychiatric exam: Anxious, Normal Affect, Normal Mood - Skin Skin Exam: Dry, Intact, Normal Color, Warm Results - Vital Signs Recent Vital Signs: Last Vital Signs Temp 98.2 F 12/12/17 14:44 Pulse 72 12/12/17 14:44 Resp 16 12/12/17 14:44 BP 122/77 12/12/17 14:44 Pulse Ox 97 12/12/17 14:44 - Labs Result Diagrams: 12/12/17 11:54 12/12/17 16:02 Labs: Laboratory Results - last 24 hr 12/12/17 12/12/17 12/12/17 11:54 11:54 11:54 WBC 8.4 D RBC 5.48 H Hgb 13.5 Hct 40.8 MCV 74.4 L MCH 24.7 L MCHC 33.2 RDW 16.8 H Plt Count 279 MPV 9.5 Neut % (Auto) 52.1 Lymph % (Auto) 38.9 [place] % (Auto) 7.5 Eos % (Auto) 0.6 Baso % (Auto) 0.9 Neut # (Auto) 4.4 Lymph # (Auto) 3.3 [place] # (Auto) 0.6 Eos # (Auto) 0.0 Baso # (Auto) 0.1 PT 11.3 INR 1.0 APTT 29 Sodium 144 Potassium 5.6 H Chloride 99 Carbon Dioxide 32 H Anion Gap 18 BUN 14 Creatinine 0.7 Est GFR ( Amer) > 60 Est GFR (Non-Af Amer) > 60 Random Glucose 99 Calcium 10.8 H Total Bilirubin 1.0 AST 38 H ALT 25 Alkaline Phosphatase 91 Total Creatine Kinase 85 CK-MB (Mass) 0.67 Troponin I < 0.0120 Total Protein 8.9 H Albumin 4.7 Globulin 4.2 H Albumin/Globulin Ratio 1.1 Assessment & Plan - Assessment and Plan (Free Text) Assessment: HTN, Hypothyroidism, Depression, Anxiety, Hx of Hep C treated in 2014 (with Dr. Ventura) Plan: Chest pain r/o ACS - Initial LYSSA: negative, EKG: NSR @ 61BPM, no ST elevations or depressions - ECHO and Cardiac Cath [address] Marie Diaz - no coronary artery disease - Sister from AAA age 40s, Brother from [place] age 50s - Patient recently endured 3 deaths in the family within the span of 8 months - F/U serial ROMIs, EKGs, ECHO, lipid, HbgA1C, TSH, T4 Hx HTN - Continue home medications: Metoprolol xL, Telmisartan Hx Hypothyroidism - Continue home medications: Synthroid 75mcg Hx Depression, Anxiety Disorder - Continue home medications: Venlafaxine 150mg Hx of Hepatitis C, treated Treated [place] [address] Ventura Prophylaxis - GI PPX: Pepcid - DVT PPX: Lovenox [address] Manzo, Estella Quiroz DO, PGY-1
[2017-12-12 16:21] LABS: BLOOD UREA NITROGEN 12 mg/dL (7-17); CALCIUM 10.3 mg/dl (8.6-10.4); GFR AFRICAN-AMERICAN > 60; GFR NON-AFRICAN AMERICAN > 60
[2017-12-12 17:46] VITALS: RESP 20
[2017-12-12 19:54] LABS: CK-MB 0.51 ng/mL (0.0-3.38)
[2017-12-13] MEDS ORDERED: Sodium Chloride 0.9% 1,000 ML IV ONE (00:24)
[2017-12-13] MEDS ORDERED: Sodium Chloride 0.9% 1,000 ML IV SCH (00:30)
[2017-12-13 04:42] LABS: BASO # 0.1 K/uL (0.0-0.2); BASO % 1.6 % (0.0-2.0); EOS % 0.5 % (0.0-4.0); HEMOGLOBIN 11.2 g/dL (11.0-16.0); LYMPH # 4.1 K/uL (1.0-4.3); LYMPH % 48.8 % (20.0-40.0); MEAN CELL VOLUME 74.7 fL (81.0-99.0); MEAN CORPUSCULAR HEMOGLOBIN 24.1 pg (27.0-31.0); MEAN CORPUSCULAR HGB CONC 32.3 g/dL (33.0-37.0); MEAN PLATELET VOLUME 9.7 fL (7.2-11.7); MONO # 0.7 K/uL (0.0-0.8); MONO % 7.9 % (0.0-10.0); NEUT # 3.4 K/uL (1.8-7.0); NEUT % 41.2 % (50.0-75.0); NRBC % 0.5 % (0.0-2.0); RBC 4.65 Mil/uL (3.80-5.20); RED CELL DISTRIBUTION WIDTH 17.3 % (11.5-14.5); WHITE BLOOD COUNT 8.3 K/uL (4.8-10.8)
[2017-12-13 05:10] LABS: ALB/GLOB RATIO 1.1 (1.0-2.1); ALBUMIN 3.3 g/dL (3.5-5.0); ALT/SGPT 11 U/L (9-52); AST/SGOT 22 U/L (14-36); BLOOD UREA NITROGEN 24 mg/dL (7-17); CALCIUM 8.8 mg/dl (8.6-10.4); GFR AFRICAN-AMERICAN > 60; GFR NON-AFRICAN AMERICAN 56; HDL CHOLESTEROL 42 mg/dL (30-70)
[2017-12-13 05:15] LABS: CK-MB 0.51 ng/mL (0.0-3.38)
[2017-12-13 05:16] LABS: LDL CHOLESTEROL 61 mg/dL (0-129)
[2017-12-13] MEDS ORDERED: Levothyroxine 75 MCG TAB PO SCH (06:30)
[2017-12-13 08:30] VITALS: TEMP 98.1; O2SAT 95
[2017-12-13 09:42] VITALS: BP 105/62
[2017-12-13 09:43] VITALS: PULSE 73
[2017-12-13] MEDS ORDERED: Metoprolol Succinate 50 mg XL Tab PO SCH (10:00)
[2017-12-13] MEDS ORDERED: Venlafaxine 150 mg ER Cap PO SCH (10:00)
--- NOTE | 2017-12-13 11:02 | CP.PCM.DIS ---
Provider - Provider Date of Admission: 12/12/17 14:58 Attending physician: Ruth Michelle MD Time Spent in preparation of Discharge (in minutes): 55 Hospital Course - Lab Results Lab Results: Most Recent Lab Values WBC 8.3 K/uL (4.8-10.8) 12/13/17 04:36 RBC 4.65 Mil/uL (3.80-5.20) 12/13/17 04:36 Hgb 11.2 g/dL (11.0-16.0) D 12/13/17 04:36 Hct 34.7 % (34.0-47.0) 12/13/17 04:36 MCV 74.7 fL (81.0-99.0) L 12/13/17 04:36 MCH 24.1 pg (27.0-31.0) L 12/13/17 04:36 MCHC 32.3 g/dL (33.0-37.0) L 12/13/17 04:36 RDW 17.3 % (11.5-14.5) H 12/13/17 04:36 Plt Count 256 K/uL (130-400) 12/13/17 04:36 MPV 9.7 fL (7.2-11.7) 12/13/17 04:36 Neut % (Auto) 41.2 % (50.0-75.0) L 12/13/17 04:36 Lymph % (Auto) 48.8 % (20.0-40.0) H 12/13/17 04:36 [place] % (Auto) 7.9 % (0.0-10.0) 12/13/17 04:36 Eos % (Auto) 0.5 % (0.0-4.0) 12/13/17 04:36 Baso % (Auto) 1.6 % (0.0-2.0) 12/13/17 04:36 Neut # (Auto) 3.4 K/uL (1.8-7.0) 12/13/17 04:36 Lymph # (Auto) 4.1 K/uL (1.0-4.3) 12/13/17 04:36 [place] # (Auto) 0.7 K/uL (0.0-0.8) 12/13/17 04:36 Eos # (Auto) 0.0 K/uL (0.0-0.7) 12/13/17 04:36 Baso # (Auto) 0.1 K/uL (0.0-0.2) 12/13/17 04:36 PT 11.3 SECONDS (9.7-12.2) 12/12/17 11:54 INR 1.0 12/12/17 11:54 APTT 29 SECONDS (21-34) 12/12/17 11:54 D-Dimer, Quantitative < 200 ng/mlDDU (0-243) 12/12/17 19:26 Sodium 145 mmol/L (132-148) 12/13/17 04:36 Potassium 4.6 mmol/L (3.6-5.2) 12/13/17 04:36 Chloride 107 mmol/L (98-107) 12/13/17 04:36 Carbon Dioxide 28 mmol/L (22-30) 12/13/17 04:36 Anion Gap 14 (10-20) 12/13/17 04:36 BUN 24 mg/dL (7-17) H 12/13/17 04:36 Creatinine 1.0 mg/dL (0.7-1.2) 12/13/17 04:36 Est GFR ( Amer) > 60 12/13/17 04:36 Est GFR (Non-Af Amer) 56 12/13/17 04:36 POC Glucose (mg/dL) 93 mg/dL (65-110) 12/13/17 06:06 Random Glucose 84 mg/dL (65-105) 12/13/17 04:36 Hemoglobin A1c 5.7 % (4.2-6.5) 12/12/17 16:04 Calcium 8.8 mg/dl (8.6-10.4) 12/13/17 04:36 Total Bilirubin 0.3 mg/dL (0.2-1.3) 12/13/17 04:36 AST 22 U/L (14-36) 12/13/17 04:36 ALT 11 U/L (9-52) 12/13/17 04:36 Alkaline Phosphatase 56 U/L (38-126) 12/13/17 04:36 Total Creatine Kinase 37 U/L (30-135) 12/13/17 04:36 CK-MB (Mass) 0.51 ng/mL (0.0-3.38) 12/13/17 04:36 Troponin I < 0.0120 ng/mL (0.00-0.120) 12/13/17 04:36 NT-Pro-B Natriuret Pep 151 pg/mL (0-900) 12/12/17 19:26 Total Protein 6.2 g/dL (6.3-8.3) L 12/13/17 04:36 Albumin 3.3 g/dL (3.5-5.0) L D 12/13/17 04:36 Globulin 2.9 gm/dL (2.2-3.9) 12/13/17 04:36 Albumin/Globulin Ratio 1.1 (1.0-2.1) 12/13/17 04:36 Triglycerides 84 mg/dL (0-149) D 12/13/17 04:36 Cholesterol 129 mg/dL (0-199) 12/13/17 04:36 LDL Cholesterol Direct 61 mg/dL (0-129) 12/13/17 04:36 HDL Cholesterol 42 mg/dL (30-70) 12/13/17 04:36 Free T4 1.51 ng/dL (0.78-2.19) 12/13/17 04:36 Thyroxine (T4) 15.0 ug/dL (5.5-11.0) H 12/12/17 16:02 TSH 3rd Generation 0.84 mIU/L (0.46-4.68) 12/12/17 16:02 - Hospital Course Hospital Course: Upon Admission: CC: chest pain HPI: This is a 62 year old female with PMHx of HTN, Hypothyroidism, Depression, Anxiety, and Hx of Hep C treated in 2014 (with Dr. Ventura), who presents to the ED with chest pain. Patient reports last night she received a phone call with news that her brother was found in a bath tub from a myocardial infarction. Patient has also lost her mother 8 months ago and her sister a few months ago from a AAA. Last night she felt immense sharp chest pain, radiating up the left side of her neck, and down her left arm. She became diaphoretic, short of breath, dizzy. EMS was called and patient was brought to the ED. Patient reports she has not been able to sleep for the past few months. She considers herself as the strong person in the family, so she endures all the pressures from the family. Denied sick contacts, recent travel. Denied fever, headache, chest pain, SOB, or urinary symptoms. PMHx: HTN, Hypothyroidism, Depression, Anxiety, Hx of Hep C treated in 2014 ( with Dr. Ventura) PSHx: Gastric Bypass Meds: As per OCT All: NKDA SHx: Admitted to tobacco (1-2 cigs / day x ~ 1 year) Denied alcohol or illicit drug use FHx: Strong family history of AAA, SC (sister, brother) PMD: Dr. Triplett Cardio: Dr. Marie Diaz Throughout Hospital Course: Patient was admitted for chest pain r/o ACS. All EKGs and ROMIs were wnl/ negative. She will need to follow up with Dr. Tegan Diaz her personal rn cardiology as outpatient. Chest pain r/o ACS - Initial LYSSA: negative, EKG: NSR @ 61BPM, no ST elevations or depressions - ECHO and Cardiac Cath [address] Marie Diaz - no coronary artery disease - Sister from AAA age 40s, Brother from [place] age 50s - Patient recently endured 3 deaths in the family within the span of 8 months - Serial ROMIs, EKGs - WNL/ negative, lipid, HbgA1C, TSH, T4 - all wnl - Will need ECHO as outpatient Hx HTN - Continue home medications: Metoprolol xL, Telmisartan Hx Hypothyroidism - Continue home medications: Synthroid 75mcg Hx Depression, Anxiety Disorder - Continue home medications: Venlafaxine 150mg Hx of Hepatitis C, treated Treated in [address] Ventura Discharge Exam - Additional Findings Additional findings: - Constitutional Appears: No Acute Distress - Head Exam Head Exam: NORMAL INSPECTION, NORMOCEPHALIC - Eye Exam Eye Exam: EOMI, Normal appearance, PERRL Pupil Exam: NORMAL ACCOMODATION - ENT Exam ENT Exam: Mucous Membranes Moist, Normal Exam - Respiratory Exam Respiratory Exam: Clear to Auscultation Bilateral, NORMAL BREATHING PATTERN. absent: Decreased Breath Sounds, Wheezes - Cardiovascular Exam Cardiovascular Exam: REGULAR RHYTHM, TTP chest - GI/Abdominal Exam GI & Abdominal Exam: Normal Bowel Sounds, Soft. absent: Distended, Tenderness - Rectal Exam Rectal Exam: Deferred - Extremities Exam Extremities exam: Positive for: normal inspection, pedal pulses present. Negative for: pedal edema, tenderness - Back Exam Back exam: NORMAL INSPECTION - Neurological Exam Neurological exam: Alert, CN II-XII Intact, Oriented x3 Additional comments: 5/5 motor strength in RUE, 5/5 motor strength in BL LE, 5/5 motor strength in Upper and Lower left extremity sensation in tact - Psychiatric Exam Psychiatric exam: Anxious, Normal Affect, Normal Mood - Skin Skin Exam: Dry, Intact, Normal Color, Warm Discharge Plan - Discharge Medications Prescriptions: Aspirin [Aspirin Chewable] 81 mg PO DAILY #30 chew Famotidine [Pepcid] 20 mg PO DAILY #30 tab Rosuvastatin Calcium [Crestor] 10 mg PO HS #30 tab - Follow Up Plan Condition: GOOD Disposition: HOME/ ROUTINE Additional Instructions: Please continue taking your home medications as directed. Please also take the following medications: Aspirin 81mg by mouth daily Pepcid 20mg by mouth daily Crestor 10mg by mouth daily Please follow up with Dr. Triplett in 1-2 weeks. Please make an appointment to follow up with Dr. Tegan Diaz this week for further cardiac workup. Referrals: Tegan Diaz MD [Staff Provider] -
--- NOTE | 2017-12-14 11:45 | CARD ---
APPROVED REPORT EKG Measurement Heart [id number] <Conclusion> Sinus bradycardia Otherwise normal ECG
--- NOTE | 2017-12-14 12:16 | CARD ---
APPROVED REPORT EKG Measurement Heart [id number] <Conclusion> Normal sinus rhythm Normal ECG
--- NOTE | 2017-12-14 12:16 | CARD ---
APPROVED REPORT EKG Measurement Heart [id number] <Conclusion> Sinus bradycardia Otherwise normal ECG
== END 2017-12-13 12:00 | disposition home or self-care (01) ==
LOC: C.ER 10:29 → C.9E 14:58 → C.5S 15:52
PROVIDERS: ADMIT Internal Medicine; ATTEND Internal Medicine
DX: I20.0 Unstable angina (principal); E11.9 Type 2 diabetes mellitus without complications; I10 Essential (primary) hypertension; I48.91 Unspecified atrial fibrillation; J44.9 Chronic obstructive pulmonary disease, unspecified; F03.90 Unspecified dementia, unspecified severity, without behavioral disturbance, psychotic disturbance, mood disturbance, and anxiety; F17.210 Nicotine dependence, cigarettes, uncomplicated; F31.9 Bipolar disorder, unspecified; E03.9 Hypothyroidism, unspecified; Z98.84 Bariatric surgery status
CPT/HCPCS: 36415; 71045; 80048; 80053; 80061; 82550; 82553; 82948; 83036; 83880; 84436; 84439; 84443; 84484; 85025; 85378; 85610; 85730; 93005; 96374; 96375; 96376; 99285; G0378; J1885; J2270; J7040

== ENCOUNTER 2018-03-30 08:36 | Emergency (ER) | payer MEDICARE, MEDICAID ==
[2018-03-30 08:53] VITALS: BMI 25.9
[2018-03-30 09:00] VITALS: O2SAT 97
[2018-03-30] MEDS ORDERED: DiphenhydrAMINE 50 mg/ml Inj IVP STA (09:27)
--- NOTE | 2018-03-30 09:54 | C.PDOC ---
History Of Present Illness 63 year old female presents to the emergency department with complaints of dizziness and ringing in her ears for the past month. Patient states that she was at [employer] two days ago when she felt dizzy and fell backwards. She is unsure if she syncopized. The following day, she reports pain to the back of her head, neck, and upper back but denies vomiting and nausea. Time Seen by Provider: 03/30/18 09:00 Chief Complaint (Nursing): Headache History Per: Patient History/Exam Limitations: no limitations Onset/Duration Of Symptoms: Days (2) Current Symptoms Are (Timing): Still Present Quality: "Pain" Associated Symptoms: denies: Nausea, Vomiting Past Medical History Reviewed: Historical Data, Nursing Documentation, Vital Signs Vital Signs: Last Vital Signs Temp 97.7 F 03/30/18 08:53 Pulse 74 03/30/18 10:25 Resp 18 03/30/18 10:25 BP 102/69 03/30/18 11:20 Pulse Ox 97 03/30/18 12:05 - Medical History PMH: Anemia (on iron infusion weekly last taken 06/01/17), Anxiety, Arthritis ( BACK), Atrial Fibrillation, Back Problems, Bipolar Disorder, Cardia Arrhythmia, COPD, Dementia, Depression, Diabetes, Diverticulitis, Gastrointestinal Ulcer, HTN, Hypothyroidism, Malignancy, Obstructive Bowel, Pneumonia, Seizures, Chronic Pain (on Methadone) Denies: Fractures, HIV, Hyperthyroidism, Osteoporosis, Chronic Kidney Disease , Rheumatoid Arthritis, Sickle Cell Disease, Sexually Transmitted Disease Comment Only: Pulmonary Embolism (not sure) Surgical History: Appendectomy, Tonsillectomy Denies: Carotid Endarterectomy, Cholecystectomy, Coronary Stent - [facility] Procedures INCISIONAL HERNIA REPAIR (06/13/13) INDIVID PSYCHOTHERAP NEC (12/29/14) INJECT/INFUSE NEC (01/28/15) INSERT GASTRIC TUBE NEC (06/07/13) OTHER GROUP THERAPY (12/29/14) OTHER SKIN & SUBQ I D (06/13/13) PSYCHIAT DRUG THERAP NEC (03/07/15) VACCINATION NEC (02/22/15) Family History: States: No Known Family Hx - Social History Hx Tobacco Use: No Hx Alcohol Use: No Hx Substance Use: No - Immunization History Hx Tetanus Toxoid Vaccination: Yes Hx Influenza Vaccination: Yes Hx Pneumococcal Vaccination: Yes Review Of Systems Except As Marked, All Systems Reviewed And Found Negative. Gastrointestinal: Negative for: Nausea, Vomiting Musculoskeletal: Positive for: Neck Pain, Back Pain, Other (posterior head pain) Physical Exam - Physical Exam Appears: Non-toxic, No Acute Distress Skin: Warm, Dry Head: Normacephalic, Tenderness (occipital scalp) Eye(s): bilateral: Normal Inspection Nose: Normal Neck: Paracervical Tenderness Chest: Symmetrical Cardiovascular: Rhythm Regular Respiratory: Normal Breath Sounds, No Rales, No Rhonchi, No Wheezing Gastrointestinal/Abdominal: Normal Exam, Soft, No Tenderness, No Guarding, No Rebound Extremity: Normal ROM, No Pedal Edema Pulses: Left Dorsalis Pedis: Normal, Right Dorsalis Pedis: Normal Neurological/Psych: Oriented x3, Normal Speech, Normal Cognition ED Course And Treatment - Laboratory Results Result Diagrams: 03/30/18 09:44 03/30/18 09:44 O2 Sat by Pulse Oximetry: 97 (RA) Pulse Ox Interpretation: Normal - CT Scan/US CT C-Spine Other Rad Studies (CT/US): Read By Radiologist, Radiology Report Reviewed CT/US Interpretation: IMPRESSION: No fracture. Degenerative disc disease at C5 -6 with probable degenerative minimal retrolisthesis at C5-6 and anterolisthesis at C4-5. Possible muscular spasm. Nonspecific ground-glass opacity in left apex. Otherwise unremarkable. CT Head Other Rad Studies (CT/US): Read By Radiologist, Radiology Report Reviewed CT/US Interpretation: IMPRESSION: No intracranial hemorrhage. Chronic white matter ischemic change. Otherwise unremarkable examination. Progress Note: Plan: CT C-Spine. CT Head. CMP. CBC. Benadryl 25mg IVP. Reglan 10mg IVP. Tylenol 650mg PO. Disposition - Disposition Referrals: Xavi Cortez MD [Staff Provider] - Disposition: HOME/ ROUTINE Disposition Time: 12:43 Additional Instructions: Follow up with the medical doctor within 1-2 days. return if worsened. 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 - Scribe Statement The provider has reviewed the documentation as recorded by the Scribe (Robert Chandrika) All medical record entries made by the Scribe were at my direction and personally dictated by me. I have reviewed the chart and agree that the record accurately reflects my personal performance of the history, physical exam, medical decision making, and the department course for this patient. I have also personally directed, reviewed, and agree with the discharge instructions and disposition.
[2018-03-30 09:59] LABS: EOS # 0.1 K/uL (0.0-0.7); HEMOGLOBIN 12.2 g/dL (11.0-16.0)
[2018-03-30 10:04] LABS: BASO # 0.1 K/uL (0.0-0.2); BASO % 0.8 % (0.0-2.0); EOS % 0.7 % (0.0-4.0); LYMPH # 3.3 K/uL (1.0-4.3); LYMPH % 32.9 % (20.0-40.0); MEAN CELL VOLUME 72.2 fL (81.0-99.0); MEAN CORPUSCULAR HEMOGLOBIN 23.6 pg (27.0-31.0); MEAN CORPUSCULAR HGB CONC 32.6 g/dL (33.0-37.0); MEAN PLATELET VOLUME 9.5 fL (7.2-11.7); MONO # 0.8 K/uL (0.0-0.8); MONO % 8.1 % (0.0-10.0); NEUT # 5.8 K/uL (1.8-7.0); NEUT % 57.5 % (50.0-75.0); NRBC % 0.3 % (0.0-2.0); RBC 5.18 Mil/uL (3.80-5.20); RED CELL DISTRIBUTION WIDTH 16.5 % (11.5-14.5); WHITE BLOOD COUNT 10.1 K/uL (4.8-10.8)
[2018-03-30 10:06] LABS: ALB/GLOB RATIO 1.4 (1.0-2.1); ALBUMIN 4.1 g/dL (3.5-5.0); ALT/SGPT 25 U/L (9-52); AST/SGOT 24 U/L (14-36); BLOOD UREA NITROGEN 11 mg/dL (7-17); CALCIUM 9.7 mg/dl (8.6-10.4); GFR NON-AFRICAN AMERICAN > 60
--- NOTE | 2018-03-30 11:25 | CT ---
Date of service: 03/30/2018 PROCEDURE: CT HEAD WITHOUT CONTRAST. HISTORY: Head injury, headache, r/o bleed COMPARISON: 12/19/2016 TECHNIQUE: Axial computed tomography images were obtained through the head/brain without intravenous contrast. Radiation dose: Total exam DLP = 758.10 mGy-cm. This CT exam was performed using one or more of the following dose reduction techniques: Automated exposure control, adjustment of the mA and/or kV according to patient size, and/or use of iterative reconstruction technique. FINDINGS: HEMORRHAGE: No intracranial hemorrhage. BRAIN: No mass effect or edema. No atrophy. Mild chronic periventricular white matter ischemic change with focal white matter remote ischemic change in the right frontal deep white matter. No evidence of acute infarct. VENTRICLES: Unremarkable. No hydrocephalus. CALVARIUM: Unremarkable. PARANASAL SINUSES: Unremarkable as visualized. No significant inflammatory changes. MASTOID AIR CELLS: Unremarkable as visualized. No inflammatory changes. OTHER FINDINGS: None. IMPRESSION: No intracranial hemorrhage. Chronic white matter ischemic change. Otherwise unremarkable examination.
--- NOTE | 2018-03-30 11:34 | CT ---
Date of service: 03/30/2018 PROCEDURE: CT Cervical Spine without contrast HISTORY: neck injury, fall, r/o fracture COMPARISON: None available. TECHNIQUE: Axial computed tomography images were obtained of the cervical spine without the use of intravenous contrast. Coronal and sagittal reformatted images were created and reviewed. Radiation dose: Total exam DLP = 31.30 mGy-cm. This CT exam was performed using one or more of the following dose reduction techniques: Automated exposure control, adjustment of the mA and/or kV according to patient size, and/or use of iterative reconstruction technique. FINDINGS: VERTEBRAE: Vertebral bodies maintained in height. There is mild reversal of the normal lordotic curvature which may indicate muscular spasm. However, this may also be due to degenerative disc disease at C5-6. There is grade 1 anterolisthesis at C4-5 and grade 1 retrolisthesis at C5-6 likely degenerative in origin. Normal alignment is maintained elsewhere. The atlantoaxial articulation and odontoid process are intact. DISCS/SPINAL CANAL/NEURAL FORAMINA: Narrowing of the C5-6 intervertebral disc space with osteophytes consistent with degenerative disc disease. The remaining disc spaces are maintained in height. PARASPINAL SOFT TISSUES: Unremarkable. OTHER FINDINGS: Mild ill-defined ground-glass opacity in left lung apex common nonspecific. IMPRESSION: No fracture. Degenerative disc disease at C5-6 with probable degenerative minimal retrolisthesis at C5-6 and anterolisthesis at C4-5. Possible muscular spasm. Nonspecific ground-glass opacity in left apex. Otherwise unremarkable.
[2018-03-30 12:58] VITALS: BP 122/76; PULSE 80; RESP 20; TEMP 97.8
== END 2018-03-30 12:57 | disposition home or self-care (01) ==
LOC: C.ER 08:36
DX: R51 Headache (principal)
CPT/HCPCS: 70450; 72125; 80053; 82948; 85025; 96372; 99285; J2270

== ENCOUNTER 2018-09-25 05:22 | Emergency (ER) | payer MEDICARE, MEDICAID ==
[2018-09-25 05:25] VITALS: BMI 25.9
[2018-09-25] MEDS ORDERED: Sodium Chloride 0.9% 1,000 ML IV ONE (07:28)
[2018-09-25] MEDS ORDERED: Albuterol-Ipratrop 3 mg / 0.5 (3 ml) UD INH STA (07:34)
[2018-09-25 08:09] LABS: BASO % 0.5 % (0.0-2.0); EOS # 0.1 K/uL (0.0-0.7); EOS % 0.6 % (0.0-4.0); HEMOGLOBIN 12.8 g/dL (11.0-16.0); LYMPH # 3.4 K/uL (1.0-4.3); LYMPH % 35.9 % (20.0-40.0); MEAN CORPUSCULAR HEMOGLOBIN 24.1 pg (27.0-31.0); MEAN CORPUSCULAR HGB CONC 32.1 g/dL (33.0-37.0); MEAN PLATELET VOLUME 9.2 fL (7.2-11.7); MONO # 0.7 K/uL (0.0-0.8); MONO % 7.2 % (0.0-10.0); NEUT # 5.3 K/uL (1.8-7.0); NEUT % 55.8 % (50.0-75.0); NRBC % 0.3 % (0.0-2.0); RBC 5.31 Mil/uL (3.80-5.20); RED CELL DISTRIBUTION WIDTH 16.6 % (11.5-14.5); WHITE BLOOD COUNT 9.5 K/uL (4.8-10.8)
[2018-09-25] MEDS ORDERED: Sodium Chloride 0.9% 1,000 ML ONE (08:10)
[2018-09-25] MEDS ORDERED: Albuterol-Ipratrop 3 mg / 0.5 (3 ml) UD ONE (08:10)
[2018-09-25 08:11] LABS: VENOUS BLOOD GAS BASE EXCESS -1.7 mmol/L (0.0-2.0); VENOUS BLOOD GAS PCO2 45 mmHg (40-60); VENOUS BLOOD GAS PO2 28 mm/Hg (30-55); VENOUS BLOOD PH 7.34 (7.32-7.43)
[2018-09-25 08:14] LABS: MEAN CELL VOLUME 75.1 fL (81.0-99.0)
[2018-09-25 08:24] LABS: ALB/GLOB RATIO 1.4 (1.0-2.1); ALBUMIN 4.7 g/dL (3.5-5.0); BLOOD UREA NITROGEN 14 mg/dL (7-17); CALCIUM 9.4 mg/dl (8.6-10.4); GFR NON-AFRICAN AMERICAN > 60; SQUAMOUS EPITHIAL 11 /hpf (0-5); URINE AMORPHOUS SEDIMENT OCC /ul (<OCC); URINE BACTERIA MOD (<OCC); URINE BILIRUBIN NEGATIVE (NEGATIVE); URINE BLOOD 2+ (NEGATIVE); URINE CLARITY Hazy (Clear); URINE COLOR Yellow (YELLOW); URINE GLUCOSE (UA) NORMAL (Normal); URINE LEUKOCYTE ESTERASE 1+ Leu/uL (Negative); URINE PROTEIN NEGATIVE (NEGATIVE); URINE UROBILINOGEN NORMAL mg/dL (0.2-1.0)
[2018-09-25 08:27] LABS: ALT/SGPT 16 U/L (9-52); AST/SGOT 42 U/L (14-36)
[2018-09-25 09:09] VITALS: BP 114/79; PULSE 68; RESP 16; TEMP 98; O2SAT 99
--- NOTE | 2018-09-25 09:36 | C.PDOC ---
History Of Present Illness 63 year old female with a history of HPT, hyperthyroidism, depression, anxiety, Hep C (treated in 2015), and COPD presents to the ED for evaluation of diarrhea x7 days with associated abdominal pain, productive cough, right otalgia, subjective fever, dizziness, and headache. The patient reports on Thursday she had loose bowels that progressed into watery diarrhea. She denies any recent antibiotic use or travel. She has had frequent episodes since 6:30am. Pt suspected she had the flu and took Robitussin, sudafed, and tea with little improvement. Admits to flu vaccination. Denies vomiting, SOB, sick contact, numbness, tingling, and any other associated symptoms. Time Seen by Provider: 09/25/18 07:15 Chief Complaint (Nursing): Flu-like Symptoms History Per: Patient History/Exam Limitations: no limitations Onset/Duration Of Symptoms: Days Current Symptoms Are (Timing): Still Present Pain Scale Rating Of: 9 (headache.) Recent travel outside of the [place]: No Past Medical History Reviewed: Historical Data, Nursing Documentation, Vital Signs Vital Signs: Last Vital Signs Temp 98 F 09/25/18 09:09 Pulse 68 09/25/18 09:09 Resp 16 09/25/18 09:09 BP 114/79 09/25/18 09:09 Pulse Ox 99 09/25/18 09:09 - Medical History PMH: Anemia (on iron infusion weekly last taken 06/01/17), Anxiety, Arthritis (BACK), Atrial Fibrillation, Back Problems, Bipolar Disorder, Cardia Arrhythmia, COPD, Dementia, Depression, Diabetes, Diverticulitis, Gastrointestinal Ulcer, H TN, Hypothyroidism, Malignancy, Obstructive Bowel, Pneumonia, Seizures, Chronic Pain (on Methadone) Denies: Fractures, HIV, Hyperthyroidism, Osteoporosis, Chronic Kidney Disease, Rheumatoid Arthritis, Sickle Cell Disease, Sexually Transmitted Disease Comment Only: Pulmonary Embolism (not sure) Surgical History: Appendectomy, Tonsillectomy Denies: Carotid Endarterectomy, Cholecystectomy, Coronary Stent - [facility] Procedures INCISIONAL HERNIA REPAIR (06/13/13) INDIVID PSYCHOTHERAP NEC (12/29/14) INJECT/INFUSE NEC (01/28/15) INSERT GASTRIC TUBE NEC (06/07/13) OTHER GROUP THERAPY (12/29/14) OTHER SKIN & SUBQ I D (06/13/13) PSYCHIAT DRUG THERAP NEC (03/07/15) VACCINATION NEC (02/22/15) Family History: States: Unknown Family Hx - Social History Hx Tobacco Use: No Hx Alcohol Use: No Hx Substance Use: No - Immunization History Hx Tetanus Toxoid Vaccination: Yes Hx Influenza Vaccination: Yes Hx Pneumococcal Vaccination: Yes Review Of Systems Except As Marked, All Systems Reviewed And Found Negative. Constitutional: Positive for: Fever (subjective. ). Negative for: Chills, Sw eats ENT: Positive for: Ear Pain (right. ). Negative for: Nose Discharge, Nose Congestion, Throat Pain Respiratory: Positive for: Cough (productive. ) Gastrointestinal: Positive for: Abdominal Pain, Diarrhea. Negative for: Vomiting Musculoskeletal: Negative for: Neck Pain, Back Pain Skin: Negative for: Rash Neurological: Positive for: Headache, Dizziness Physical Exam - Physical Exam Appears: Non-toxic, No Acute Distress Skin: Warm, Dry Head: Atraumatic, Normacephalic Eye(s): bilateral: Normal Inspection, PERRL Ear(s): Bilateral: Normal (TM intact; nonerythematous) Nose: Normal Oral Mucosa: Moist Throat: Normal, No Erythema, No Exudate Neck: Normal ROM, Supple Chest: Symmetrical, No Deformity Cardiovascular: Rhythm Regular Respiratory: No Rales, No Rhonchi, Wheezing Gastrointestinal/Abdominal: Soft, Tenderness (epigastic. ) Back: No CVA Tenderness Extremity: Bilateral: Atraumatic, Normal Color And Temperature, Normal ROM Neurological/Psych: Oriented x3, Normal Speech, Normal Cognition, Normal Sensation ED Course And Treatment - Laboratory Results Result Diagrams: 09/25/18 07:58 09/25/18 07:58 Lab Results: pO2 28 mm/Hg (30-55) L 09/25/18 08:07 VBG pH 7.34 (7.32-7.43) 09/25/18 08:07 VBG pCO2 45 mmHg (40-60) 09/25/18 08:07 VBG HCO3 22.3 mmol/L 09/25/18 08:07 VBG Total CO2 25.7 mmol/L (22-28) 09/25/18 08:07 VBG O2 Sat (Calc) 56.2 % (40-65) 09/25/18 08:07 VBG Base Excess -1.7 mmol/L (0.0-2.0) L 09/25/18 08:07 VBG Potassium 3.6 mmol/L (3.6-5.2) 09/25/18 08:07 Sodium 143.0 mmol/l (132-148) 09/25/18 08:07 Chloride 114.0 mmol/L (98-107) H 09/25/18 08:07 Glucose 77 mg/dl (65-105) 09/25/18 08:07 Lactate 1.1 mmol/L (0.7-2.1) 09/25/18 08:07 Total Bilirubin 0.6 mg/dL (0.2-1.3) 09/25/18 07:58 AST 42 U/L (14-36) H D 09/25/18 07:58 ALT 16 U/L (9-52) 09/25/18 07:58 Alkaline Phosphatase 111 U/L (38-126) 09/25/18 07:58 Total Protein 8.2 g/dL (6.3-8.3) 09/25/18 07:58 Albumin 4.7 g/dL (3.5-5.0) 09/25/18 07:58 Globulin 3.5 gm/dL (2.2-3.9) 09/25/18 07:58 Albumin/Globulin Ratio 1.4 (1.0-2.1) 09/25/18 07:58 Urine Color Yellow (YELLOW) 09/25/18 07:58 Urine Clarity Hazy (Clear) 09/25/18 07:58 Urine pH 5.0 (5.0-8.0) 09/25/18 07:58 Ur Specific [place] 1.015 (1.003-1.030) 09/25/18 07:58 Urine Protein Negative mg/dL (NEGATIVE) 09/25/18 07:58 Urine Glucose (UA) Normal mg/dL (Normal) 09/25/18 07:58 Urine Ketones Negative mg/dL (NEGATIVE) 09/25/18 07:58 Urine Blood 2+ (NEGATIVE) H 09/25/18 07:58 Urine Nitrate Negative (NEGATIVE) 09/25/18 07:58 Urine Bilirubin Negative (NEGATIVE) 09/25/18 07:58 Urine Urobilinogen Normal mg/dL (0.2-1.0) 09/25/18 07:58 Ur Leukocyte Esterase 1+ Carmelina/uL (Negative) H 09/25/18 07:58 Urine WBC (Auto) 9 /hpf (0-5) H 09/25/18 07:58 Urine RBC (Auto) 12 /hpf (0-3) H 09/25/18 07:58 Ur Squamous Epith Cells 11 /hpf (0-5) H 09/25/18 07:58 Amorphous Sediment Occ /ul (<OCC) H 09/25/18 07:58 Urine Bacteria Mod (<OCC) H 09/25/18 07:58 ECG: Interpreted By Me, Viewed By Me ECG Rhythm: Sinus Rhythm Interpretation Of ECG: possible left atrial enlargement. Rate From EC O2 Sat by Pulse Oximetry: 99 (RA) Pulse Ox Interpretation: Normal Medical Decision Making Medical Decision Making: Initial plan: -CXR -labs -EKG -Duoneb -Toradol -Zofran Progress/Notes: Patient notes feeling better. D/W Dr. Triplett Stable for discharge home Prescribed Benzonatate, Ventolin HFA, Pepto, and Tylenol Encouraged BRAT Diet, rest, and hydration Advised to return to the ED if symptoms worsen. Advised to follow up with PMD within 2-3 days. Disposition Discussed With : Sunny Triplett Doctor Will See Patient In The: Office Counseled Patient/Family Regarding: Studies Performed, Diagnosis, Need For Followup, Rx Given - Disposition Referrals: Sunny Triplett MD [Staff Provider] - Disposition: HOME/ ROUTINE Disposition Time: 10:13 Condition: STABLE Additional Instructions: ROXANA CRAWFORD, thank you for letting us take care of you today. Your provider was Dianelys Hand MD/Christina Delcid PA-C and you were treated for Viral Syndrome. The emergency medical care you received today was directed at your acute symptoms. If you were prescribed any medication, please fill it and take as directed. It may take several days for your symptoms to resolve. Return to the E mergency Department if your symptoms worsen, do not improve, or if you have any other problems. Please contact your doctor or call one of the physicians/clinics you have been referred to that are listed on the Patient Visit Information form that is included in your discharge packet. Bring any paperwork you were given at discharge with you along with any medications you are taking to your follow up visit. Our treatment cannot replace ongoing medical care by a primary care provider outside of the emergency department. [facility] care today. 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 - Scribe Statement The provider has reviewed the documentation as recorded by the Scribe (Trice Purcell) All medical record entries made by the Scribe were at my direction and personally dictated by me. I have reviewed the chart and agree that the record accurately reflects my personal performance of the history, physical exam, medical decision making, and the department course for this patient. I have also personally directed, reviewed, and agree with the discharge instructions and disposition.
--- NOTE | 2018-09-25 15:07 | RAD ---
Date of service: 09/25/2018 HISTORY: SOB COMPARISON: 07/01/2018 TECHNIQUE: Chest PA and lateral FINDINGS: LUNGS: No active pulmonary disease. PLEURA: No significant pleural effusion identified. No pneumothorax apparent. CARDIOVASCULAR: No aortic atherosclerotic calcification present. Normal cardiac size. No pulmonary vascular congestion. OSSEOUS STRUCTURES: No significant abnormalities. VISUALIZED UPPER ABDOMEN: Normal. OTHER FINDINGS: None. IMPRESSION: No active disease.
--- NOTE | 2018-09-28 19:44 | CARD ---
APPROVED REPORT Date of service: 09/25/2018 EKG Measurement Heart [id number] <Conclusion> Normal sinus rhythm Possible Left atrial enlargement Nonspecific ST abnormality Abnormal ECG
== END 2018-09-25 10:36 | disposition home or self-care (01) ==
LOC: C.ER 05:22
DX: B34.9 Viral infection, unspecified (principal); R19.7 Diarrhea, unspecified; I10 Essential (primary) hypertension; I48.91 Unspecified atrial fibrillation; J44.9 Chronic obstructive pulmonary disease, unspecified; E11.9 Type 2 diabetes mellitus without complications; D64.9 Anemia, unspecified; F03.90 Unspecified dementia, unspecified severity, without behavioral disturbance, psychotic disturbance, mood disturbance, and anxiety; F17.210 Nicotine dependence, cigarettes, uncomplicated
CPT/HCPCS: 71046; 80053; 81001; 82803; 85025; 87804; 93005; 96361; 96374; 96375; 99285; J1885; J2405; J7030

== ENCOUNTER 2018-11-18 12:44 | Outpatient (CLI) | payer MEDICARE, MEDICAID | END 2018-11-18 12:45 | disposition home or self-care (01) | LOC: C.MRIC 12:45 | DX: I67.1 Cerebral aneurysm, nonruptured (principal) ==